=== PATIENT | female | born 1990 | race Caucasian/White ===

== ENCOUNTER → 2020-08-17 | Outpatient (CLI) | payer OTHER ==
[~2020-08-17] MED LIST: OMNICEF 300 MG300 MG PO
== END ==
LOC: RAD 10:09
DX: R76.11 Nonspecific reaction to tuberculin skin test without active tuberculosis (principal)
CPT/HCPCS: 71045

== ENCOUNTER 2020-09-12 12:10 | Emergency (ER) | payer OTHER ==
[2020-09-12 14:37] LABS: HEMOGLOBIN 11.3 gm/dl (12.3-15.3); RED BLOOD COUNT 4.31 M/UL (4.00-5.10); WHITE BLOOD COUNT 15.3 K/UL (4.5-11.0)
[2020-09-12 14:46] LABS: BUN/CREATININE RATIO 24 (0-10)
[2020-09-12] MEDS ORDERED: OMNICEF 300 MG300 MG PO (15:38)
== END 2020-09-12 15:54 | disposition home or self-care (01) ==
LOC: ER1 12:10
PROVIDERS: Physician Assistant
DX: N39.0 Urinary tract infection, site not specified (principal); F17.200 Nicotine dependence, unspecified, uncomplicated
CPT/HCPCS: 80053; 81001; 85025; 99283

== ENCOUNTER → 2021-08-01 | Outpatient (CLI) | payer OTHER | LOC: RAD 15:54 | DX: A15.8 Other respiratory tuberculosis (principal) | CPT/HCPCS: 71046 ==